=== PATIENT | male | born 2000 | race Caucasian/White ===

== ENCOUNTER 2020-03-13 05:54 | Day surgery (SDC) | payer OTHER ==
[~2020-03-13] VITALS: Ht 185.4 cm; Wt 84.1 kg
[2020-03-13] MEDS ORDERED: LACTATED RINGERS 1,000 ML IV SCH (06:38)
[2020-03-13 06:44] VITALS: BP 131/83
[2020-03-13] MEDS ORDERED: NO MEDS PER PT (06:48)
[2020-03-13 06:49] VITALS: BP 131/83
[2020-03-13] MEDS ORDERED: COCAINE TOPICAL SOLN 4%, 4ML ONE (06:59)
[2020-03-13] MEDS ORDERED: NEOSPORIN OINT, 15GM ONE (06:59)
[2020-03-13] MEDS ORDERED: OXYMETAZOLINE NASAL SPRAY 0.05%, 15ML ONE (06:59)
[2020-03-13] MEDS ORDERED: LIDOCAINE 1%-EPI 1:100K, 20ML ONE (07:00)
[2020-03-13] MEDS ORDERED: CHLORHEXIDINE 15 ML UDC MM ONE (07:00)
[2020-03-13] MEDS ORDERED: FENTANYL PF 100 MCG/2ML ONE ×3 (07:16→10:53)
[2020-03-13] MEDS ORDERED: MIDAZOLAM 1 MG/ML, 2ML ONE (07:16)
[2020-03-13] MEDS ORDERED: SUCCINYLCHOLINE 20 MG/ML, 10ML ONE (07:34)
[2020-03-13] MEDS ORDERED: DEXAMETHASONE 4 MG/ML, 5ML ONE (07:34)
[2020-03-13] MEDS ORDERED: PROPOFOL 10 MG/ML, 20ML ONE (07:34)
[2020-03-13] MEDS ORDERED: CEFAZOLIN 1,000 MG ONE (07:34)
[2020-03-13] MEDS ORDERED: ROCURONIUM 10 MG/ML,10ML ONE (07:34)
[2020-03-13] MEDS ORDERED: ONDANSETRON 2MG/ML, 2ML ONE (07:34)
[2020-03-13] MEDS ORDERED: EPINEPHRINE TOPICAL SOLN 1 MG/ML, 30ML TP ONE (09:03)
[2020-03-13] MEDS ORDERED: FLUORESCEIN SODIUM 500 MG/5 ML ONE (10:32)
[2020-03-13] MEDS ORDERED: EPINEPHRINE TOPICAL SOLN 1 MG/ML, 30ML ONE (10:32)
[2020-03-13] MEDS: FENTANYL PF 100 MCG/2ML IV PRN ×2 (10:54→11:09)
[2020-03-13] MEDS ORDERED: PROMETHAZINE 25 MG/ML, 1ML IV PRN (11:00)
[2020-03-13] MEDS ORDERED: DIAZEPAM 5 MG/ML, 2ML IV PRN ×2 (11:00)
[2020-03-13] MEDS ORDERED: OXYcodone 5 MG/5 ML ORAL.SOL UDC PO PRN (11:00)
[2020-03-13] MEDS ORDERED: METOCLOPRAMIDE 5 MG/ML, 2ML IV PRN (11:00)
[2020-03-13] MEDS ORDERED: LABETALOL 5MG/ML, 20ML IV PRN (11:00)
[2020-03-13] MEDS ORDERED: ONDANSETRON 2MG/ML, 2ML IVPush PRN (11:00)
[2020-03-13] MEDS ORDERED: HYDROmorphone 1 MG/ML, 1ML INJ IV PRN (11:00)
[2020-03-13] MEDS ORDERED: hydrALAzine 20 MG/ML, 1ML IV PRN (11:00)
[2020-03-13] MEDS ORDERED: MEPERIDINE/PF 25MG/0.5ML IVPush PRN (11:00)
[2020-03-13] MEDS ORDERED: KETOROLAC 30 MG/1 ML IV PRN (11:00)
[2020-03-13] MEDS ORDERED: ALBUTEROL SULFATE 2.5 MG/3 ML NPPB PRN (11:00)
[2020-03-13] MEDS ORDERED: OXYcodone 5 MG/5 ML ORAL.SOL UDC ONE (11:10)
[2020-03-13] MEDS ORDERED: KETOROLAC 30 MG/1 ML ONE (11:12)
== END 2020-03-13 12:30 | disposition home or self-care (01) ==
LOC: OUT 05:54
PROVIDERS: ATTEND Otolaryngology
DX: J34.2 Deviated nasal septum (principal); Z11.59 Encounter for screening for other viral diseases; J32.0 Chronic maxillary sinusitis
CPT/HCPCS: 31240; 31255; 31256; 31267; 36415; 87635; 88304; 88311; J0330; J0690; J1100; J1885; J2250; J2405; J2704; J3010; J3490; J7120

== ENCOUNTER 2020-03-20 06:14 | Day surgery (SDC) | payer OTHER ==
[~2020-03-20] VITALS: Ht 185.4 cm; Wt 83.8 kg
[~2020-03-20 06:14] MED LIST: ALBUTEROL SULFATE 2.5 MG/3 ML NPPB PRN; DIAZEPAM 5 MG/ML, 2ML IV PRN; FENTANYL PF 100 MCG/2ML IV PRN; HYDROmorphone 1 MG/ML, 1ML INJ IV PRN; KETOROLAC 30 MG/1 ML IV PRN; LABETALOL 5MG/ML, 20ML IV PRN; MEPERIDINE/PF 25MG/0.5ML IVPush PRN; METOCLOPRAMIDE 5 MG/ML, 2ML IV PRN; NO MEDS PER PT; ONDANSETRON 2MG/ML, 2ML IVPush PRN; OXYcodone 5 MG/5 ML ORAL.SOL UDC PO PRN; PROMETHAZINE 25 MG/ML, 1ML IV PRN; hydrALAzine 20 MG/ML, 1ML IV PRN
[2020-03-20] MEDS ORDERED: OXYMETAZOLINE NASAL SPRAY 0.05%, 15ML ONE (06:33)
[2020-03-20] MEDS ORDERED: BACITRACIN OINT 500U/GM, 15 GM ONE (06:33)
[2020-03-20] MEDS ORDERED: FLUORESCEIN SODIUM 500 MG/5 ML ONE (06:33)
[2020-03-20] MEDS ORDERED: EPINEPHRINE TOPICAL SOLN 1 MG/ML, 30ML ONE (06:33)
[2020-03-20] MEDS ORDERED: LIDOCAINE 1%-EPI 1:100K, 20ML ONE (06:33)
[2020-03-20] MEDS ORDERED: BACITRACIN ZINC OINT 500U/GM, 0.9 GM ONE (06:33)
[2020-03-20 06:50] VITALS: BP 136/85
[2020-03-20] MEDS ORDERED: CHLORHEXIDINE 15 ML UDC MM ONE (07:00)
[2020-03-20 07:01] VITALS: BP 136/85
== END 2020-03-20 08:20 | disposition home or self-care (01) ==
LOC: OUT 06:14
PROVIDERS: ATTEND Otolaryngology
DX: J32.8 Other chronic sinusitis (principal); Z11.59 Encounter for screening for other viral diseases; J34.2 Deviated nasal septum; J32.0 Chronic maxillary sinusitis; Z72.89 Other problems related to lifestyle
CPT/HCPCS: 31237; 87635; J3490